=== PATIENT | male | born 1950 | race Caucasian/White ===

== ENCOUNTER → 2018-07-03 | Outpatient (CLI) | payer MEDICARE | END | disposition home or self-care (01) | LOC: LABPAT 10:50 | PROVIDERS: ATTEND Orthopaedic Surgery | DX: Z01.812 Encounter for preprocedural laboratory examination (principal) | CPT/HCPCS: 87070 ==

== ENCOUNTER 2018-07-11 07:44 | Inpatient (IN) | payer MEDICARE ==
[2018-07-05 09:58] VITALS: BMI 28.8
[~2018-07-11 07:44] MED LIST: ACETAMINOPHEN TAB 500 MG TAB PO ONE; DEXAMETHASONE SOD PHOSPHATE 10 MG/ML 1 ML VIAL IV ONE; HYDROmorphone 1 MG/ML 1 ML SYRINGE IVP PRN; LIDOCAINE 1% 20 ML VIAL (10MG/ML) FOR IV START INTRADERMA PRN; MELOXICAM 7.5 MG TAB PO ONE; MIDAZOLAM 2 MG/2 ML VIAL IV PRN; ONDANSETRON 4 MG/2 ML VIAL IVP ONE; ROPIVACAINE 246.25 MG, EPINEPHrine 0.5 MG, KETOROLAC 30 MG, cloNIDine HCL/PF 80 MCG, WA... MISCELLANE ONE; SCOPOLAMINE 1.5MG/72HR PATCH TRANSDERM ONE; TRANEXAMIC ACID 1,000 MG in SODIUM CHLORIDE 0.9% 50 ML IVPB ONE; ceFAZolin IN SWFI 2 GM/20 ML SYRINGE IVP ONE
[2018-07-11] MEDS: LACTATED RINGERS 1,000 ML IV SCH (08:37)
[2018-07-11] MEDS ORDERED: ceFAZolin 3,000 MG in SODIUM CHLORIDE 0.9% IRRIGATIO 3,000 ML IRRIGATION ONE (10:01)
[2018-07-11] MEDS ORDERED: LACTATED RINGERS 1,000 ML IV ONE (10:29)
--- NOTE | 2018-07-11 10:49 | P.OP ---
Date of Procedure: 07/11/18 Preoperative Diagnosis: Severe osteoarthritis left hip Postoperative Diagnosis: Severe osteoarthritis left hip Procedure(s) Performed: Left total hip arthroplasty with a direct anterior approach Implants: Regan and nephew Polarstem size 6 standard Regan [employer] Nephew R3, 3 hole acetabular shell, 52 mm Regan [employer] Nephew reflection 6.5 mm cancellus screw, 20 mm 2 Regan [employer] Nephew R3, XLPE 20 acetabular liner Regan & Nephew Oxinium femoral head 36 m, +0 All components were press-fit. The articulation is Oxinium on polyethylene. Anesthesia: spinal Surgeon: Hubert Koo Evp Sales #1: Rosa Maria Corbett Estimated Blood Loss (ml): 50 Pathology: other (Femoral head) Condition: stable Disposition: PACU Indications for Procedure: After failure of conservative treatment we discussed the surgical and nonsurgical treatment options at length. Patient wishes to proceed with a total hip arthroplasty with a direct anterior approach. Complications specific to this procedure were discussed at length, including but not limited to infection, leg length discrepancy, dislocation, and nerve injury. Patient is aware of all these complications and informed consent was obtained Operative Findings: The operative findings are consistent with severe osteoarthritis the left hip Description of Procedure: Patient was seen and evaluated in the preoperative area, consent was reviewed, and the surgical site was marked with a skin marker. Patient was then brought to the operating room and given prophylactic antibiotics intravenously. 1 g of Tranexamic acid was also given. A spinal anesthetic was administered by the anesthesia department. The patient was then placed on the [place] table with the bony prominences well-padded. The hip area was then prepped and draped in usual sterile fashion. A universal timeout was then performed, which confirmed the patient's name, surgical site, ALLERGIES, and procedure being performed. Next the incision site was located at 1 cm distal and 1 cm lateral to the anterior superior iliac spine. The skin and subcutaneous tissues were sharply incised. Incision was carefully dissected down to the fascia overlying the tensor fascia darien muscle. This fascia was then incised in line with the incision. Next, using blunt finger dissection, the tensor fascia darien muscle was dissected off its investing fascia. The muscle was then carefully retracted laterally with a cobra retractor over the lateral neck of the femur. Next, the circumflex vessels were identified and cauterized using the AquaMantis device. The anterior hip capsule was then exposed. The capsule was then opened and an inverted T fashion. Cobra retractors were then placed intracapsularly. The proximal femur was then visualized. The femoral neck was then osteotomized appropriate level above the lesser trochanter. Small amount of traction was placed with the [place] table. A small wedge of bone was then removed from the remaining femoral head. Next, using a corkscrew femoral head was easily removed from the acetabulum. On gross visual inspection, the femoral head had complete loss of articular cartilage in multiple periarticular osteophytes. Attention was then turned to the acetabulum. the acetabulum was exposed and any remaining labrum was excised. Sequential reaming of the acetabulum was performed using fluoroscopic guidance. When the appropriate size was reached, a trial was then placed. The position and fit of the trial was checked with fluoroscopy. The trial was then removed. Then, using fluoroscopic guidance, the final implant was impacted at 20 of anteversion and 40 of abduction, and fully seated in the acetabulum. 2 screws were then placed in the acetabulum. Again fluoroscopy was used to check position of the screws. Next, the liner was then impacted, with a 20 elevated liner located in the anterior superior quadrant. Component locking was confirmed. Attention was then directed to the femur. With the aid of the [place] table, the femur was externally rotated to approximately 130, extended, and abducted under the opposite leg. A side hook was then placed under the proximal femur, and the side hook elevator was used to elevate the proximal femur. Retractors were then placed. A capsular release was performed, as well as a release of the conjoined tendon, which afforded excellent visualization of the proximal femur. Next, a box osteotome was used to lateralize the proximal femur. A merchandise execution leader was then used to locate the femoral canal. Sequential broaching was then performed with appropriate size which afforded excellent fixation in the proximal femur. A trial was then placed with appropriate head and neck, and the hip was gently reduced with the aid of the [place] table. Fluoroscopy was then used to check position of the components, as well as to ensure equal leg lengths. The hip was then gently dislocated and the trials were then removed. Final implants were then impacted and the hip was again reduced. Final fluoroscopic x-rays confirmed that the components were in anatomic position, as well as equal leg lengths. The hip was also taken through range of motion, and found to be stable. The hip was then copiously irrigated with antibiotic solution with pulsatile lavage. The hip was then irrigated with Irrisept solution. The soft tissues were then injected with a ropivacaine solution, which consisted of 246.25 mg of ropivacaine, 0.5 mg of epinephrine, 30 mg of Toradol, 80 g of clonidine, and 48.45 mL of sterile water, for a total of 100 mL of fluid injected. A second dose of 1 g of Tranexamic acid was also given. the fascia was then closed with 2-0 strata fix suture. The subcutaneous tissue was closed with 3-0 Vicryl. The subcuticular tissue was closed with 3-0 strata fix suture. The skin was then closed with Dermabond glue and a sterile silver dressing. The patient was then transferred to the recovery room in stable condition. The kindergarten instructional assistant SKY Hernandez was required due to the complexity of surgery, and the need for skilled surgical garment inspector for positioning, draping, exposure, retraction, and closure of the wound.
[2018-07-11] MEDS ORDERED: ONDANSETRON 4 MG/2 ML VIAL IVP PRN (11:10)
[2018-07-11] MEDS ORDERED: HYDROmorphone 1 MG/ML 1 ML SYRINGE IVP PRN ×3 (11:10)
[2018-07-11] MEDS ORDERED: MAGNESIUM HYDROXIDE 2,400 MG/10 ML CUP PO PRN (11:10)
[2018-07-11] MEDS ORDERED: HYDROcodone/APAP 5-325MG 1 EACH TAB PO PRN (11:10)
[2018-07-11] MEDS ORDERED: hydrOXYzine PAMOATE 25 MG CAP PO PRN (11:10)
[2018-07-11] MEDS ORDERED: NALOXONE 0.4 MG/ML 1 ML VIAL IV PRN (11:10)
[2018-07-11] MEDS ORDERED: DIAZEPAM 5 MG TAB PO PRN (11:10)
--- NOTE | 2018-07-11 11:42 | XR ---
EXAMINATION TYPE: XR Hip Limited LT DATE OF EXAM: 07/11/2018 CLINICAL HISTORY: Left hip pain and osteoarthritis. TECHNIQUE: Single AP portable view of left hip is obtained immediately postoperatively. COMPARISON: None. FINDINGS: Metallic hardware from left hip arthroplasty is seen and appears satisfactory in alignment and position. There is evidence of recent surgery with subcutaneous gas and soft tissue swelling not ed laterally. IMPRESSION: Metallic hardware from left hip arthroplasty is satisfactory in position.
--- NOTE | 2018-07-11 11:53 | XR ---
EXAMINATION TYPE: XR Hip Limited LT, FL guidance operating room DATE OF EXAM: 07/11/2018 CLINICAL HISTORY: Left hip arthroplasty TECHNIQUE: Fluoroscopy. COMPARISON: None. FINDINGS/IMPRESSION: Fluoroscopic guidance was provided during procedure performed by Dr. Koo. A total of 1.11 minutes of fluoroscopic time was utilized during the procedure and 2 spot images was acquired.
[2018-07-11] MEDS: HYDROcodone/APAP 5-325MG 1 EACH TAB PO PRN ×2 (13:49→19:17)
[2018-07-11] MEDS: SODIUM CHLORIDE 0.9% 1,000 ML IV SCH (15:32)
[2018-07-11] MEDS: ceFAZolin IN SWFI 2 GM/20 ML SYRINGE IVP SCH (17:42)
[2018-07-11] MEDS ORDERED: SENNOSIDES-DOCUSATE SODIUM 1 EACH TAB PO SCH (21:00)
--- NOTE | 2018-07-11 21:51 | P.CONS ---
History of Present Illness - Reason for Consult Consult date: 07/11/18 Medical management of hypertension - Chief Complaint Left total hip Arthroplasty - History of Present Illness Patient is a 68-year-old male with a known history of hypertension, hyperlipidemia and osteoarthritis was admitted to the hospital for elective Left total hip arthroplasty with a direct anterior approach. Patient is postoperative day 0. Currently denied any complaints of chest pain or shortness of breath. No nausea vomiting or abdominal pain. Pain is well controlled. No headache or dizziness or lightheadedness. No chest pain. No fever no chills. Currently patient is hypotensive and blood pressure medications will be held at this time. Review of Systems Constitutional: Patient denies any fever or chills . No generalized weakness or weight loss. Abdomen: Patient denied nausea vomiting and diarrhea and abdominal pain. Cardiovascular: Patient denies any chest pain or short of breath no palpitations. Respiratory: patient denied any cough is from production. No shortness of breath Neurologic: Patient denied any numbness or tingling headache. Musculoskeletal: Patient denies any complaints of joint swelling or deformity. Skin: Negative Psychiatric: Negative Endocrine: No heat or cold intolerance. No recent weight gain. Genitourinary: No dysuria or hematuria. All other 14 point ROS negative except the above Past Medical History Past Medical History: Hyperlipidemia, Hypertension, Osteoarthritis (OA) History of Any Multi-Drug Resistant Organisms: None Reported Past Surgical History: Tonsillectomy Additional Past Surgical History / Comment(s): sinus surgery, reba. carpal tunnel release Past Anesthesia/Blood Transfusion Reactions: No Reported Reaction Smoking Status: Never smoker - Past Family History Mother Family Medical History: Cancer Medications and Allergies Home Medications Medication Instructions Recorded Confirmed Type Aspirin EC [Ecotrin Low Dose] 81 mg PO DAILY 07/05/18 07/11/18 History Benazepril/Hydrochlorothiazide 1 tab PO DAILY 07/05/18 07/11/18 History [Benazepril-Hctz 20-25 mg Tab] Cinnamon Bark [Cinnamon] 500 mg PO DAILY 07/05/18 07/11/18 History Fluticasone Nasal [place] [Flonase 2 spr EA NOSTRIL DAILY PRN 07/05/18 07/11/18 History Nasal [place]] Metoprolol Tartrate [Lopressor] 25 mg PO DAILY 07/05/18 07/11/18 History Pravastatin Sodium [Pravachol] 40 mg PO DAILY 07/05/18 07/11/18 History Pyridoxine [Vitamin B-6] 250 mg PO DAILY 07/05/18 07/11/18 History Allergies Allergy/AdvReac Type Severity Reaction Status Date / Time No Known Allergies Allergy Verified 07/11/18 12:04 Physical Exam Vitals: Vital Signs Temp Pulse Resp BP Pulse Ox 07/11/18 11:33 53 L 16 96/59 94 L 07/11/18 11:18 55 L 16 95/55 95 07/11/18 11:09 96.8 F L 58 L 16 90/52 99 07/11/18 08:18 97.9 F 63 16 130/78 98 Intake and Output 07/10/18 07/11/18 07/11/18 22:59 06:59 14:59 Intake Total 1201 Output Total 50 Balance 1151 Intake: IV 1201 Output: Estimated Blood Loss 50 PHYSICAL EXAMINATION: Patient is lying in the bed comfortably, no acute distress, awake alert and oriented.. HEENT: Normocephalic. Neck is supple. Pupils reactive. Nostrils clear. Oral cavity is moist. Ears reveal no drainage. Neck reveals no JVD, carotid bruits, or thyromegaly. CHEST EXAMINATION: Trachea is central. Symmetrical expansion. Lung ramirez clear to auscultation and percussion. CARDIAC: Normal S1, S2 with no gallops. No murmurs ABDOMEN: Soft. Bowel sounds normal. No organomegaly. No abdominal bruits. Extremities: reveal no edema. No clubbing or cyanosis Neurologically awake, alert, oriented x3 with well-coordinated movements. No focal deficits noted Skin: No rash or skin lesions. Psychiatric: Coperative. Nonsuicidal Musculoskeletal: No joint swelling or deformity. Left hip surgical site is intact. Assessment and Plan Assessment: Status post Left total hip arthroplasty with a direct anterior approach. Postoperative day 0 Osteoarthritis of multiple joints Hypertension Hyperlipidemia DVT prophylaxis Plan: Patient will be continued on pain management and bowel regimen as per orthopedic surgery recommendations. Patient is hypotensive currently. Blood pressure medications will be held at this time. He does take benazepril/ hydrochlorothiazide and metoprolol at home. Continue with other home medications. Encourage ambulation and incentive spirometry. DVT prophylaxis. Further recommendations based on the clinical course. thank you for your consult.
[2018-07-11] MEDS: ASPIRIN 325 MG TAB PO SCH (22:48)
[2018-07-12] MEDS: ceFAZolin IN SWFI 2 GM/20 ML SYRINGE IVP SCH (00:42)
[2018-07-12] MEDS: HYDROcodone/APAP 5-325MG 1 EACH TAB PO PRN (02:12)
[2018-07-12] MEDS: SODIUM CHLORIDE 0.9% 1,000 ML IV SCH ×2 (03:10→08:42)
[2018-07-12] MEDS: LACTATED RINGERS 1,000 ML IV SCH (06:13)
[2018-07-12 07:57] VITALS: BP 122/76; PULSE 86; RESP 18; TEMP 98
[2018-07-12] MEDS: ASPIRIN 325 MG TAB PO SCH (08:35)
[2018-07-12] MEDS ORDERED: MELOXICAM 7.5 MG TAB PO SCH (09:00)
--- NOTE | 2018-07-12 09:13 | P.DS ---
Providers Date of admission: 07/11/18 07:44 Expected date of discharge: 07/12/18 Attending physician: Hubert Koo Consults: 07/11/18 11:10 Consult Physician Routine Consulting Provider: Kun Mcclendon Consult Reason/Comments: medical management Do you want consulting provider notified?: Yes Primary care physician: Martínez Servin - Discharge Diagnosis(es) (1) Primary osteoarthritis of left hip Current Visit: Yes Status: Acute (2) S/P total hip arthroplasty Current Visit: Yes Status: Acute Hospital Course: This is a 68-year-old male with known history of degenerative arthritis of the left hip. The patient presents for evaluation. After discussion and consideration patient elects to proceed with total hip arthroplasty. The patient is seen preoperatively by Dr. Koo and medically cleared for surgery by their primary care physician. Patient is admitted to [facility] on 07/11/2018 for total hip arthroplasty. The procedures performed without complication or sequelae. The patient is doing well postoperatively. Labs and vital signs are stable on day of discharge. On day of discharge patient's hip incision is healing well. There is minimal erythema. There is no drainage noted at this time. There is minimal soft tissue swelling to the hip and thigh. Patient has full foot and ankle motion without difficulty or pain. Neurovascular status to the left lower extremity is intact. Patient is discharged home in good condition. Please see med rec for accurate list of home medications. Plan - Discharge Summary Discharge Rx Participant: No New Discharge Prescriptions: New Aspirin 325 mg PO BID #60 tab HYDROcodone/APAP 5-325MG [Hopkins 5-325] 1 - 2 tab PO Q4-6H PRN #84 tab PRN Reason: Pain Sennosides [Senokot] 1 tab PO BID #60 tablet No Action Pravastatin Sodium [Pravachol] 40 mg PO DAILY Metoprolol Tartrate [Lopressor] 25 mg PO DAILY Benazepril/Hydrochlorothiazide [Benazepril-Hctz 20-25 mg Tab] 1 tab PO DAILY Pyridoxine [Vitamin B-6] 250 mg PO DAILY Fluticasone Nasal [place] [Flonase Nasal [place]] 2 spr EA NOSTRIL DAILY PRN PRN Reason: allergies Aspirin EC [Ecotrin Low Dose] 81 mg PO DAILY Cinnamon Bark [Cinnamon] 500 mg PO DAILY Discharge Medication List Aspirin EC [Ecotrin Low Dose] 81 mg PO DAILY 07/05/18 [History] Benazepril/Hydrochlorothiazide [Benazepril-Hctz 20-25 mg Tab] 1 tab PO DAILY [History] Cinnamon Bark [Cinnamon] 500 mg PO DAILY 07/05/18 [History] Fluticasone Nasal [place] [Flonase Nasal [place]] 2 spr EA NOSTRIL DAILY PRN [History] Metoprolol Tartrate [Lopressor] 25 mg PO DAILY 07/05/18 [History] Pravastatin Sodium [Pravachol] 40 mg PO DAILY 07/05/18 [History] Pyridoxine [Vitamin B-6] 250 mg PO DAILY 07/05/18 [History] Aspirin 325 mg PO BID #60 tab 07/12/18 [Rx] HYDROcodone/APAP 5-325MG [Hopkins 5-325] 1 - 2 tab PO Q4-6H PRN #84 tab 07/12/18 [ Rx] Sennosides [Senokot] 1 tab PO BID #60 tablet 07/12/18 [Rx] Follow up Appointment(s)/Referral(s): Hubert Koo DO [Doctor of Osteopathic Medicine] - 2 Weeks Activity/Diet/Wound Care/Special Instructions: Weightbearing as tolerated with walker. Leave dressing intact. Dressing may be removed by home care nurse in 10 days. May shower with dressing on. Follow-up with [facility] in 2 weeks, please call with any questions or concerns [phone]. Discharge Disposition: HOME WITH HOME HEALTH SERVICES
[2018-07-12 09:39] LABS: Basophils % (A) 0 %; Eosinophils % (A) 0 %; HCT 37.1 % (39.0-53.0); HGB 12.4 gm/dL (13.0-17.5); Lymphocytes # (A) 2.1 k/uL (1.0-4.8); Lymphocytes % (A) 22 %; MCH 29.9 pg (25.0-35.0); MCHC 33.5 g/dL (31.0-37.0); MCV 89.4 fL (80.0-100.0); Mean Platelet Volume 8.1; Monocytes # (A) 0.6 k/uL (0-1.0); Monocytes % (A) 7 %; Neutrophils # (A) 6.6 k/uL (1.3-7.7); Neutrophils % (A) 70 %; Platelet Count 248 k/uL (150-450); RBC 4.16 m/uL (4.30-5.90); RDW 13.2 % (11.5-15.5); WBC 9.4 k/uL (3.8-10.6)
[2018-07-12 10:17] LABS: Anion Gap 9 mmol/L; Blood Urea Nitrogen 24 mg/dL (9-20); Calcium 8.9 mg/dL (8.4-10.2); Carbon Dioxide 26 mmol/L (22-30); Chloride 104 mmol/L (98-107); Glucose 135 mg/dL (74-99); Potassium 3.8 mmol/L (3.5-5.1); Sodium 139 mmol/L (137-145)
[2018-07-12] MEDS ORDERED: FLUTICASONE 50MCG/SPRAY NASAL 16GM EA NOSTRIL PRN (11:26)
[2018-07-12] MEDS ORDERED: METOPROLOL TARTRATE 25 MG TAB PO SCH (11:30)
[2018-07-13] MEDS ORDERED: PYRIDOXINE 50 MG TAB PO SCH (09:00)
[2018-07-13] MEDS ORDERED: PRAVASTATIN SODIUM 40 MG TAB PO SCH (09:00)
--- NOTE | 2018-07-13 17:25 | P.PN ---
Subjective Progress Note Date: 07/12/18 Progress note being dictated for Dr. Salazar Interval history:Patient is a 68-year-old male with a known history of hypertension, hyperlipidemia and osteoarthritis was admitted to the hospital for elective Left total hip arthroplasty with a direct anterior approach. Patient is postoperative day 0. Currently denied any complaints of chest pain or shortness of breath. No nausea vomiting or abdominal pain. Pain is well controlled. No headache or dizziness or lightheadedness. No chest pain. No fever no chills. Currently patient is hypotensive and blood pressure medications will be held at this time. Review of Systems Constitutional: Patient denies any fever or chills . No generalized weakness or weight loss. Abdomen: Patient denied nausea vomiting and diarrhea and abdominal pain. Cardiovascular: Patient denies any chest pain or short of breath no palpitations. Respiratory: patient denied any cough is from production. No shortness of breath Neurologic: Patient denied any numbness or tingling headache. Musculoskeletal: Patient denies any complaints of joint swelling or deformity. Skin: Negative Psychiatric: Negative Endocrine: No heat or cold intolerance. No recent weight gain. Genitourinary: No dysuria or hematuria. All other 14 point ROS negative except the above 07/12/2018 status post left total hip arthroplasty, tolerated procedure well. Ambulating with physical therapy, tolerated exertion well. Denies lightheadedness dizziness or focal deficits. Good diet intake, no nausea or vomiting. Passing flatus. Antihypertensives remain on hold as blood pressures low normal. Objective - Vital Signs Vital signs: Vital Signs Temp 98.0 F 07/12/18 07:00 Pulse 86 07/12/18 07:00 Resp 18 07/12/18 07:00 BP 122/76 07/12/18 07:00 Pulse Ox 98 07/12/18 07:00 Intake & Output 07/12/18 07/12/18 07/13/18 06:59 18:59 06:59 Intake Total 715 Balance 715 Intake: Intake, IV Titration 715 Amount Sodium Chloride 0.9% 1, 715 000 ml @ 65 mls/hr IV . [id number] [facility] Rx#:[id number] - Exam EXAMINATION: Patient is sitting up in the bed comfortably, no acute distress, awake alert and oriented.. HEENT: Normocephalic. Neck is supple. Pupils reactive. Nostrils clear. Oral cavity is moist. Neck reveals no JVD, carotid bruits, or thyromegaly. CHEST EXAMINATION: Trachea is central. Symmetrical expansion. Lung ramirez clear to auscultation and percussion. CARDIAC: Normal S1, S2 with no gallops. No murmurs ABDOMEN: Soft. Bowel sounds normal. No organomegaly. No abdominal bruits. Extremities: reveal no edema. No clubbing or cyanosis Neurologically awake, alert, oriented x3 with well-coordinated movements. No focal deficits noted Skin: No rash or skin lesions. Psychiatric: Coperative. Nonsuicidal Musculoskeletal: No joint swelling or deformity. Left hip surgical site is intact. - Labs CBC & Chem 7: 07/12/18 08:17 07/12/18 08:17 Labs: Abnormal Lab Results - Last 24 Hours (Table) 07/12/18 07/12/18 Range/Units 08:17 08:17 RBC 4.16 L (4.30-5.90) m/uL Hgb 12.4 L (13.0-17.5) gm/dL Hct 37.1 L (39.0-53.0) % BUN 24 H (9-20) mg/dL Glucose 135 H (74-99) mg/dL Assessment and Plan Assessment: Status post Left total hip arthroplasty with a direct anterior approach. Osteoarthritis of multiple joints Hypertension Hyperlipidemia DVT prophylaxis Plan: Continue on current medication regime ,monitoring and symptomatic treatment. Antihypertensives to remain on hold related to low normal blood pressures, reevaluate outpatient Follow-up with PCP. Aggressive pulmonary toileting. Discharge planning in progress for today as per orthopedic surgery. Follow-up PCP in 1 week. The impression and plan of care has been dictated as directed. : I performed a history and examination of this patient, discussed the same with the dictator. I agree with the dictator's note ,documented as a scribe. Any additional findings or plans will be noted.
== END 2018-07-12 13:24 | disposition home health service (06) | DRG 470 ==
LOC: 2ORMAIN 07:44 → 4SSUR 11:02
PROVIDERS: ADMIT Orthopaedic Surgery; ATTEND Orthopaedic Surgery
PROC: 0SRB06A Replacement of Left Hip Joint with Oxidized Zirconium on Polyethylene Synthetic Substitute, Uncemented, Open Approach (ICD-10-PCS; principal; 2018-07-11 09:30)
DX: M16.12 Unilateral primary osteoarthritis, left hip (principal); I95.9 Hypotension, unspecified; E66.9 Obesity, unspecified; I10 Essential (primary) hypertension; E78.5 Hyperlipidemia, unspecified; E78.00 Pure hypercholesterolemia, unspecified; J30.9 Allergic rhinitis, unspecified; H93.19 Tinnitus, unspecified ear; Z68.28 Body mass index [BMI] 28.0-28.9, adult; Z79.82 Long term (current) use of aspirin; Z79.899 Other long term (current) drug therapy; Z98.52 Vasectomy status; Z82.0 Family history of epilepsy and other diseases of the nervous system; Z83.511 Family history of glaucoma
CPT/HCPCS: 73501; 80048; 85025; 86850; 86891; 86900; 86901; 88300

== ENCOUNTER 2025-03-27 10:17 | Day surgery (SDC) | payer MEDICARE ==
[2025-03-27] MEDS: IV FLUID CONTINUATION 1,000 ML IV ONE ×2 (10:32→11:20)
[2025-03-27 10:36] VITALS: TEMP 97.9
[2025-03-27] MEDS ORDERED: PROPOFOL 10 MG/ML 20 ML VIAL IV ONE (11:32)
--- NOTE | 2025-03-27 11:51 | P.PCN ---
Date of Procedure: 03/27/25 Procedure(s) Performed: BRIEF HISTORY: Patient is a 74-year-old pleasant white male scheduled for an elective colonoscopy as a part of screening for prior history of colon polyps. Last colonoscopy was 5 years ago and was noted to have a tubular adenoma. PROCEDURE PERFORMED: Colonoscopy. PREOPERATIVE DIAGNOSIS: Screening for history of colon polyps. IV sedation per Anesthesia. PROCEDURE: After informed consent was obtained, the patient, was brought into the endoscopy unit. IV sedation was administered by Anesthesia under continuous monitoring. Digital rectal examination was normal. Initially the Olympus CF-160 flexible video colonoscope was then inserted in the rectum, gradually advanced into the cecum without any difficulty. Careful examination was performed as the scope was gradually being withdrawn. Ileocecal valve and the appendiceal orifice were visualized and appeared normal. Prep was excellent. Mucosa of the cecum, ascending colon, transverse colon, descending colon, sigmoid colon, and rectum appeared normal. Scattered sigmoid diverticulosis. Retroflexion was performed in the rectum and no lesions were seen. The patient tolerated the procedure well. IMPRESSION: Normal-appearing colon from rectum to cecum with no evidence of colorectal neoplasia. Scattered sigmoid diverticulosis. RECOMMENDATIONS: Findings of this examination were discussed with the patient as well as his family. He was advised to have repeat screening colonoscopy at age 82.
[2025-03-27 12:35] VITALS: BP 159/92; PULSE 75; RESP 16
== END 2025-03-27 12:42 ==
LOC: ORWHC2ENDO 10:17
PROVIDERS: ATTEND Internal Medicine Gastroenterology
DX: Z12.11 Encounter for screening for malignant neoplasm of colon (principal); Z86.0101 Personal history of adenomatous and serrated colon polyps; K57.30 Diverticulosis of large intestine without perforation or abscess without bleeding
CPT/HCPCS: 45378; J2704